=== PATIENT | male | born 1950 | race Caucasian/White ===

== ENCOUNTER 2016-06-19 17:40 | Emergency (ER) | payer MEDICARE, OTHER ==
--- NOTE | 2016-07-08 11:50 | ER ---
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 He has about a 3 cm laceration that is bleeding. This was controlled easily and closed with running 4-0 Prolene. Pressure bandage x 24 hours, elevate, sutures out in 7 days. CONDITION ON DISCHARGE: Good. José Manuel Guzman MD/ keesha JOB #: [id number] CC: José Manuel Guzman MD, Attending Physician Scott Paniagua MD, Family Physician
== END 2016-06-19 18:40 | disposition home or self-care (01) ==
LOC: ER 17:40
PROC: 0HQNXZZ Repair Left Foot Skin, External Approach (ICD-10-PCS; principal; 2016-06-19)
DX: S91.312A Laceration without foreign body, left foot, initial encounter (principal); Z23 Encounter for immunization; W20.8XXA Other cause of strike by thrown, projected or falling object, initial encounter; Y92.009 Unspecified place in unspecified non-institutional (private) residence as the place of occurrence of the external cause